=== PATIENT | male | born 1930 | race African-American/Black ===

== ENCOUNTER 2016-10-24 21:55 | Emergency (ER) | payer OTHER ==
[~2016-10-24] VITALS: Ht 175.3 cm; Wt 59.0 kg
[2016-10-24] MEDS ORDERED: LISINOPRIL5 MG PO (22:04)
[2016-10-24] MEDS ORDERED: SAW PALMETTO80 MG (22:06)
[2016-10-24] MEDS ORDERED: GLUCOPHAGE XR500 M1 (22:06)
[2016-10-24] MEDS ORDERED: ADALAT CC30 MG (22:06)
[2016-10-24] MEDS ORDERED: IRON325 PO (22:07)
[2016-10-24] MEDS ORDERED: GLUCOSAMINE HC500 MG (22:07)
[2016-10-25] MEDS ORDERED: MOBIC7.5 MG PO (01:14)
[2016-10-25 01:25] VITALS: BP 138/77
== END 2016-10-25 01:25 | disposition home or self-care (01) ==
LOC: ER 21:55
DX: S46.911A Strain of unspecified muscle, fascia and tendon at shoulder and upper arm level, right arm, initial encounter (principal); S00.03XA Contusion of scalp, initial encounter; S80.01XA Contusion of right knee, initial encounter; S00.81XA Abrasion of other part of head, initial encounter; I10 Essential (primary) hypertension; E11.9 Type 2 diabetes mellitus without complications; Z88.0 Allergy status to penicillin